=== PATIENT | female | born 1965 | race Caucasian/White ===

== ENCOUNTER 2018-10-08 14:31 | Outpatient (CLI) | payer MEDICAID | END 2018-10-08 14:32 | disposition home or self-care (01) | LOC: C.MAMMO 14:32 ==

== ENCOUNTER 2018-11-26 06:39 | Day surgery (SDC) | payer MEDICAID ==
[2018-11-26 07:15] VITALS: BMI 26.1
[2018-11-26 10:16] VITALS: TEMP 97.6
[2018-11-26 10:40] VITALS: RESP 18
[2018-11-26 11:07] VITALS: BP 119/78; PULSE 62; O2SAT 98
== END 2018-11-26 11:04 | disposition home or self-care (01) ==
LOC: C.ENDO 06:39
PROVIDERS: ATTEND Internal Medicine Gastroenterology
DX: K62.1 Rectal polyp (principal); K64.8 Other hemorrhoids

== ENCOUNTER 2019-01-10 12:59 | Observation (INO) | payer MEDICAID ==
[2019-01-10 12:59] VITALS: BMI 26.1
[2019-01-10] MEDS ORDERED: Sodium Chloride 0.9% 1,000 ML IV STA (13:32)
[2019-01-10] MEDS ORDERED: Sodium Chloride 0.9% 1,000 ML ONE (13:46)
[2019-01-10 13:53] LABS: BASO # 0.1 K/uL (0.0-0.2); BASO % 0.9 % (0.0-2.0); EOS # 0.1 K/uL (0.0-0.7); EOS % 1.2 % (0.0-4.0); HEMOGLOBIN 13.2 g/dL (11.0-16.0); LYMPH # 2.5 K/uL (1.0-4.3); LYMPH % 28.3 % (20.0-40.0); MEAN CORPUSCULAR HEMOGLOBIN 28.2 pg (27.0-31.0); MEAN CORPUSCULAR HGB CONC 34.5 g/dL (33.0-37.0); MEAN PLATELET VOLUME 8.4 fL (7.2-11.7); MONO # 0.5 K/uL (0.0-0.8); MONO % 5.4 % (0.0-10.0); NEUT # 5.7 K/uL (1.8-7.0); NEUT % 64.2 % (50.0-75.0); NRBC % 0.1 % (0.0-2.0); RBC 4.69 Mil/uL (3.80-5.20); RED CELL DISTRIBUTION WIDTH 13.3 % (11.5-14.5); WHITE BLOOD COUNT 8.9 K/uL (4.8-10.8)
[2019-01-10 13:55] LABS: MEAN CELL VOLUME 81.8 fL (81.0-99.0)
--- NOTE | 2019-01-10 13:56 | C.PDOC ---
History Of Present Illness 53 year old female with PMHx of HTN on Metropolol and Amlodipine presents to the ED complaining dizziness, nausea, and weakness for one day. Reports 6-7 episodes of vomiting yesterday, but none today. Also reports 2 episodes of diarrhea, headache, and loss of appetite. Patient states her blood pressure was high yesterday. Notes she was feeling fine 2 days prior. Denies any new medications, abdominal pain, chest pain, shortness of breath, or any other symptoms. Time Seen by Provider: 01/10/19 13:13 Chief Complaint (Nursing): Dizziness/Lightheaded History Per: Patient History/Exam Limitations: no limitations Onset/Duration Of Symptoms: Days (1) Current Symptoms Are (Timing): Still Present Past Medical History Reviewed: Historical Data, Nursing Documentation, Vital Signs Vital Signs: Last Vital Signs Temp 98.8 F 01/10/19 13:07 Pulse 64 01/10/19 13:07 Resp 17 01/10/19 13:07 BP 154/91 H 01/10/19 13:07 Pulse Ox 97 01/10/19 13:07 Primary Care Provider: Clinic,Med Surg - Medical History PMH: Asthma, Gastritis, Gall Bladder Disease (gallstones), HIV, HTN, Peripheral Edema Denies: Chronic Kidney Disease Surgical History: Cholecystectomy, Endoscopy - [facility] Procedures EXCISION OF LEFT OVARY, OPEN APPROACH (12/28/15) Family History: States: No Known Family Hx - Social History Hx Alcohol Use: No Hx Substance Use: No - Immunization History Hx Tetanus Toxoid Vaccination: Yes Hx Influenza Vaccination: No Hx Pneumococcal Vaccination: No Review Of Systems Except As Marked, All Systems Reviewed And Found Negative. Constitutional: Positive for: Other (loss of appetite ). Negative for: Fever, Chills Gastrointestinal: Positive for: Nausea, Vomiting, Diarrhea. Negative for: Abdominal Pain Genitourinary: Negative for: Dysuria, Hematuria Neurological: Positive for: Dizziness Physical Exam - Physical Exam Appears: Non-toxic, No Acute Distress Skin: Warm, Dry, No Rash Head: Normacephalic Eye(s): bilateral: PERRL, EOMI, Other ( no nystagmus) Oral Mucosa: Moist Neck: Supple Chest: Symmetrical, No Tenderness Cardiovascular: Rhythm Regular, No Murmur Respiratory: Normal Breath Sounds, No Rales, No Rhonchi, No Wheezing, Other (good air movement, CTA B/L ) Gastrointestinal/Abdominal: Soft, No Tenderness Neurological/Psych: Oriented x3, Normal Speech, Normal Cranial Nerves, No Cerebellar Signs, Normal Motor, Normal Sensation Gait: Steady ED Course And Treatment - Laboratory Results Result Diagrams: 01/10/19 13:44 01/10/19 13:44 ECG: Interpreted By Me, Viewed By Me ECG Rhythm: Sinus Bradycardia Interpretation Of ECG: No ST elevations, Left axis deviation, LVH Rate From EC O2 Sat by Pulse Oximetry: 97 (RA) Pulse Ox Interpretation: Normal - Other Rad CXR X-Ray: Viewed By Me, Read By Radiologist Interpretation: Accession No. : [id number]. Patient Name / ID : ESTEBAN GARCIA / [id number]. Exam Date : 01/10/2019 13:38:45 ( Approved ). Study Comment : Sex / Age : F / [id number]. Creator : Amparo Galloway MD. Dictator : Amparo Galloway MD. Creosoting Engineer : Needle Grinder : Amparo Galloway MD. Approver2 : Report Date : 01/10/2019 15:11:36. My Comment : . HISTORY: dizzy. COMPARISON: None available. TECHNIQUE: Chest, one view. FINDINGS: Examination limited by habitus and hypoinflation. LUNGS: No focal consolidation. Please note that chest x-ray has limited sensitivity for the detection of pulmonary masses. PLEURA: No significant pleural effusion identified. No definite pneumothorax . CARDIOVASCULAR: The cardiomediastinal silhouette appears within normal limits of size. Faint atherosclerotic calcifications present. OSSEOUS STRUCTURES: No acute osseous abnormality identified. VISUALIZED UPPER ABDOMEN: Mild elevation of the right hemidiaphragm. OTHER FINDINGS: None. IMPRESSION: No acute findings. Medical Decision Making Medical Decision Making: Plan - EKG - CXR - Zofran 4mg IVP - IV fluids - UA - Bloodwork 1520 - On reassessment, patient reports she feels like the room is spinning when she gets up. Discussed bloodwork results with pt. Waiting for urine results. Pt will be given Antivert. 170 - On reevaluation, patient is still complaining of nausea and dizziness. CT head will be ordered. 1824 - Patient reports little improvement. Still complains of nausea and dizziness. States she feels like she wants to vomit. 183 - Spoke with Dr. Stefan Fritz, will accept patient to his service. Disposition Counseled Patient/Family Regarding: Studies Performed, Diagnosis - Disposition Disposition: HOSPITALIZED Disposition Time: 18:38 Condition: GOOD - Clinical Impression Clinical Impression: Dizziness, Vomiting - Scribe Statement The provider has reviewed the documentation as recorded by the Scribghislaine Martin All medical record entries made by the Romie were at my direction and pe rsonally dictated by me. I have reviewed the chart and agree that the record accurately reflects my personal performance of the history, physical exam, medical decision making, and the department course for this patient. I have also personally directed, reviewed, and agree with the discharge instructions and disposition.
[2019-01-10 14:06] LABS: ALBUMIN 4.4 g/dL (3.5-5.0); ALT/SGPT 23 U/L (9-52); AST/SGOT 33 U/L (14-36); BLOOD UREA NITROGEN 10 mg/dL (7-17); CALCIUM 9.6 mg/dl (8.6-10.4); GFR NON-AFRICAN AMERICAN > 60; LIPASE 42 U/L (23-300)
[2019-01-10 14:51] LABS: SQUAMOUS EPITHIAL 1 /hpf (0-5); URINE BILIRUBIN NEGATIVE (NEGATIVE); URINE BLOOD 2+ (NEGATIVE); URINE CLARITY Clear (Clear); URINE COLOR Yellow (YELLOW); URINE GLUCOSE (UA) NORMAL (Normal); URINE LEUKOCYTE ESTERASE NEG Leu/uL (Negative); URINE PROTEIN NEGATIVE (NEGATIVE); URINE UROBILINOGEN NORMAL mg/dL (0.2-1.0)
--- NOTE | 2019-01-10 15:15 | RAD ---
HISTORY: dizzy COMPARISON: None available. TECHNIQUE: Chest, one view. FINDINGS: Examination limited by habitus and hypoinflation. LUNGS: No focal consolidation. Please note that chest x-ray has limited sensitivity for the detection of pulmonary masses. PLEURA: No significant pleural effusion identified. No definite pneumothorax . CARDIOVASCULAR: The cardiomediastinal silhouette appears within normal limits of size. Faint atherosclerotic calcifications present. OSSEOUS STRUCTURES: No acute osseous abnormality identified. VISUALIZED UPPER ABDOMEN: Mild elevation of the right hemidiaphragm OTHER FINDINGS: None. IMPRESSION: No acute findings.
[2019-01-10] MEDS ORDERED: Sodium Chloride 0.9% 1,000 ML IV ONE (17:04)
[2019-01-10] MEDS: Sodium Chloride 0.9% 1,000 ML IV SCH (22:11)
--- NOTE | 2019-01-10 23:23 | CP.PCM.HP ---
Past Patient History - Past Medical History & Family History Past Medical History?: Yes - Past Social History Smoking Status: Never Smoked - CARDIAC Hx Hypertension: Yes Hx Peripheral Edema: Yes - PULMONARY Hx Asthma: Yes - NEUROLOGICAL Hx Neurological Disorder: Yes (peripheral neuropathy) - HEENT Hx HEENT Problems: No - RENAL Hx Chronic Kidney Disease: No - ENDOCRINE/METABOLIC Hx Endocrine Disorders: No - HEMATOLOGICAL/ONCOLOGICAL Hx Human Immunodeficiency Virus (HIV): Yes - INTEGUMENTARY Hx Dermatological Problems: No - MUSCULOSKELETAL/RHEUMATOLOGICAL Hx Musculoskeletal Disorders: Yes Hx Falls: No Hx Osteoarthritis: Yes Other/Comment: bilat carpal tunnel - GASTROINTESTINAL Hx Gall Bladder Disease: Yes (gallstones) Hx Gastritis: Yes - GENITOURINARY/GYNECOLOGICAL Hx Genitourinary Disorders: Yes (pelvic pain cysts) - PSYCHIATRIC Hx Substance Use: No - SURGICAL HISTORY Hx Cholecystectomy: Yes - ANESTHESIA Hx Anesthesia: Yes Hx Anesthesia Reactions: Yes (nausea vomitting difficult to arouse) Hx Malignant Hyperthermia: No Meds Allergies/Adverse Reactions: Allergies Allergy/AdvReac Type Severity Reaction Status Date / Time No Known Allergies Allergy Verified 01/10/19 13:11 Physical Exam - Constitutional Appears: Well - Head Exam Head Exam: ATRAUMATIC, NORMAL INSPECTION, NORMOCEPHALIC - Eye Exam Eye Exam: EOMI, Normal appearance, PERRL Pupil Exam: NORMAL ACCOMODATION, PERRL - ENT Exam ENT Exam: Mucous Membranes Moist, Normal Exam - Neck Exam Neck exam: Positive for: Normal Inspection - Respiratory Exam Respiratory Exam: Decreased Breath Sounds - Cardiovascular Exam Cardiovascular Exam: REGULAR RHYTHM, +S1, +S2 - GI/Abdominal Exam GI & Abdominal Exam: Diminished Bowel Sounds, Soft - Rectal Exam Rectal Exam: Deferred - Neurological Exam Neurological exam: Oriented x3 Results - Vital Signs Recent Vital Signs: Last Vital Signs Temp 98.0 F 01/10/19 19:37 Pulse 60 01/10/19 19:37 Resp 20 01/10/19 19:37 BP 148/80 01/10/19 19:37 Pulse Ox 96 01/10/19 19:37 - Labs Result Diagrams: 01/10/19 13:44 01/10/19 13:44 Labs: Laboratory Results - last 24 hr 01/10/19 01/10/19 01/10/19 13:06 13:44 13:44 WBC 8.9 RBC 4.69 Hgb 13.2 Hct 38.3 MCV 81.8 D MCH 28.2 MCHC 34.5 RDW 13.3 Plt Count 361 MPV 8.4 Neut % (Auto) 64.2 Lymph % (Auto) 28.3 [place] % (Auto) 5.4 Eos % (Auto) 1.2 Baso % (Auto) 0.9 Neut # (Auto) 5.7 Lymph # (Auto) 2.5 [place] # (Auto) 0.5 Eos # (Auto) 0.1 Baso # (Auto) 0.1 Sodium 140 Potassium 3.4 L Chloride 102 Carbon Dioxide 27 Anion Gap 15 BUN 10 Creatinine 0.7 Est GFR ( Amer) > 60 Est GFR (Non-Af Amer) > 60 POC Glucose (mg/dL) 107 Random Glucose 110 H Calcium 9.6 Total Bilirubin 1.2 AST 33 ALT 23 Alkaline Phosphatase 125 Troponin I Total Protein 8.7 H Albumin 4.4 Globulin 4.3 H Albumin/Globulin Ratio 1.0 Lipase 42 Urine Color Urine Clarity Urine pH Ur Specific [place] Urine Protein Urine Glucose (UA) Urine Ketones Urine Blood Urine Nitrate Urine Bilirubin Urine Urobilinogen Ur Leukocyte Esterase Urine WBC (Auto) Urine RBC (Auto) Ur Squamous Epith Cells 01/10/19 01/10/19 14:00 14:47 WBC RBC Hgb Hct MCV MCH MCHC RDW Plt Count MPV Neut % (Auto) Lymph % (Auto) [place] % (Auto) Eos % (Auto) Baso % (Auto) Neut # (Auto) Lymph # (Auto) [place] # (Auto) Eos # (Auto) Baso # (Auto) Sodium Potassium Chloride Carbon Dioxide Anion Gap BUN Creatinine Est GFR ( Amer) Est GFR (Non-Af Amer) POC Glucose (mg/dL) Random Glucose Calcium Total Bilirubin AST ALT Alkaline Phosphatase Troponin I < 0.0120 Total Protein Albumin Globulin Albumin/Globulin Ratio Lipase Urine Color Yellow Urine Clarity Clear Urine pH 7.0 Ur Specific [place] 1.008 Urine Protein Negative Urine Glucose (UA) Normal Urine Ketones Negative Urine Blood 2+ H Urine Nitrate Negative Urine Bilirubin Negative Urine Urobilinogen Normal Ur Leukocyte Esterase Neg Urine WBC (Auto) < 1 Urine RBC (Auto) 1 Ur Squamous Epith Cells 1
[2019-01-11] MEDS ORDERED: Potassium Chloride 20 mEq ER Tab PO ONE (00:57)
--- NOTE | 2019-01-11 09:57 | CT ---
Date of service: 01/10/2019 PROCEDURE: CT HEAD WITHOUT CONTRAST. HISTORY: dizziness COMPARISON: None available. TECHNIQUE: Axial computed tomography images were obtained through the head/brain without intravenous contrast. Radiation dose: Total exam DLP = 1028.77 mGy-cm. This CT exam was performed using one or more of the following dose reduction techniques: Automated exposure control, adjustment of the mA and/or kV according to patient size, and/or use of iterative reconstruction technique. FINDINGS: HEMORRHAGE: No intracranial hemorrhage. BRAIN: No mass effect or edema. Scattered periventricular and subcortical white matter hypodensities, which are nonspecific, but often seen with chronic microvascular ischemic disease. Please note that MRI with diffusion imaging is more sensitive in the detection of acute ischemic event. VENTRICLES: No hydrocephalus. CALVARIUM: Unremarkable. PARANASAL SINUSES: Unremarkable as visualized. No significant inflammatory changes. MASTOID AIR CELLS: Unremarkable as visualized. No inflammatory changes. OTHER FINDINGS: None. IMPRESSION: No acute intracranial pathology identified. Nonspecific white matter changes present. Preliminary impression was provided by [employer].
[2019-01-11] MEDS ORDERED: Pantoprazole 40 mg EC Tab PO SCH (10:00)
[2019-01-11] MEDS ORDERED: Emtricitabine/rilpivirine/tenofovir 1 TAB PO SCH (10:00)
--- NOTE | 2019-01-11 10:04 | CP.PCM.CON ---
History of Present Illness - History of Present Illness History of Present Illness: This is a 53 year old woman with nausea and vomiting. Patient saw Dr. Plascencia recently for a positive fecal occult blood test. [facility] copy 11/26/2018 showed internal hemorrhoids and a 6 mm adenoma in the rectum; the polyp was removed. She also had EGD 10 or 11 years ago which showed only gastritis. Patient was in her usual state of health until Saturday, when she noted sudden onset of dizziness, the sense that her surroundings were spinning, nausea and vomiting. She vomited up to seven times, and had diarrhea twice. she had a mi ld headache. She denies having ringing in the ears, loss of appetite, loss of weight, heartburn, difficulty swallowing, abdominla pain, constipation, and rectal bleeding. Review of Systems - Review of Systems All systems: reviewed and no additional remarkable complaints except - Constitutional Constitutional: Headache. absent: Anorexia, Chills, Fever, Weight Loss - EENT Ears: Dizziness. absent: Tinnitus - Gastrointestinal Gastrointestinal: Diarrhea, Nausea, Vomiting. absent: Abdominal Pain, Constipation, Dysphagia, Heartburn, Hematochezia - Genitourinary Genitourinary: absent: Dysuria, Hematuria - Neurological Neurological: Dizziness, Headaches, Vertigo Past Patient History - Past Medical History & Family History Past Medical History?: Yes - Past Social History Smoking Status: Never Smoked - CARDIAC Hx Hypertension: Yes Hx Peripheral Edema: Yes - PULMONARY Hx Asthma: Yes - NEUROLOGICAL Hx Neurological Disorder: Yes (peripheral neuropathy) - HEENT Hx HEENT Problems: No - RENAL Hx Chronic Kidney Disease: No - ENDOCRINE/METABOLIC Hx Endocrine Disorders: No - HEMATOLOGICAL/ONCOLOGICAL Hx Human Immunodeficiency Virus (HIV): Yes - INTEGUMENTARY Hx Dermatological Problems: No - MUSCULOSKELETAL/RHEUMATOLOGICAL Hx Musculoskeletal Disorders: Yes Hx Falls: No Hx Osteoarthritis: Yes Other/Comment: bilat carpal tunnel - GASTROINTESTINAL Hx Gall Bladder Disease: Yes (gallstones) Hx Gastritis: Yes - GENITOURINARY/GYNECOLOGICAL Hx Genitourinary Disorders: Yes (pelvic pain cysts) - PSYCHIATRIC Hx Substance Use: No - SURGICAL HISTORY Hx Cholecystectomy: Yes - ANESTHESIA Hx Anesthesia: Yes Hx Anesthesia Reactions: Yes (nausea vomitting difficult to arouse) Hx Malignant Hyperthermia: No Meds Allergies/Adverse Reactions: Allergies Allergy/AdvReac Type Severity Reaction Status Date / Time No Known Allergies Allergy Verified 01/10/19 13:11 - Medications Medications: Current Medications Amlodipine Besylate (Norvasc) 10 mg PO DAILY [facility] Enoxaparin Sodium (Lovenox) 40 mg SC DAILY [facility] Sodium Chloride (Sodium Chloride 0.9%) 1,000 mls @ 75 mls/hr IV .[id number] [facility] Last Admin: 01/10/19 22:11 Dose: 75 mls/hr Loratadine (Claritin) 10 mg PO DAILY [facility] Meclizine HCl (Antivert) 25 mg PO TID [facility] Metoprolol Tartrate (Lopressor) 25 mg PO DAILY [facility] Pantoprazole Sodium (Protonix Ec Tab) 40 mg PO DAILY [facility] Physical Exam - Constitutional Appears: No Acute Distress - Head Exam Head Exam: ATRAUMATIC, NORMOCEPHALIC - Eye Exam Eye Exam: EOMI - Neck Exam Neck exam: Negative for: Lymphadenopathy, Thyromegaly - Respiratory Exam Respiratory Exam: NORMAL BREATHING PATTERN. absent: Decreased Breath Sounds, Rhonchi, Wheezes - Cardiovascular Exam Cardiovascular Exam: REGULAR RHYTHM, +S1, +S2. absent: Gallop, Rubs, Systolic Murmur - GI/Abdominal Exam GI & Abdominal Exam: Normal Bowel Sounds, Soft. absent: Mass, Organomegaly, Tenderness - Rectal Exam Rectal Exam: Deferred - Extremities Exam Extremities exam: Negative for: calf tenderness, pedal edema Results - Vital Signs Recent Vital Signs: Last Vital Signs Temp 97.6 F 01/11/19 08:38 Pulse 61 01/11/19 08:38 Resp 20 01/11/19 08:38 BP 135/81 01/11/19 08:38 Pulse Ox 96 01/11/19 08:38 - Labs Result Diagrams: 01/10/19 13:44 01/10/19 13:44 Labs: Laboratory Results - last 24 hr 01/10/19 01/10/19 01/10/19 13:06 13:44 13:44 WBC 8.9 RBC 4.69 Hgb 13.2 Hct 38.3 MCV 81.8 D MCH 28.2 MCHC 34.5 RDW 13.3 Plt Count 361 MPV 8.4 Neut % (Auto) 64.2 Lymph % (Auto) 28.3 [place] % (Auto) 5.4 Eos % (Auto) 1.2 Baso % (Auto) 0.9 Neut # (Auto) 5.7 Lymph # (Auto) 2.5 [place] # (Auto) 0.5 Eos # (Auto) 0.1 Baso # (Auto) 0.1 Sodium 140 Potassium 3.4 L Chloride 102 Carbon Dioxide 27 Anion Gap 15 BUN 10 Creatinine 0.7 Est GFR ( Amer) > 60 Est GFR (Non-Af Amer) > 60 POC Glucose (mg/dL) 107 Random Glucose 110 H Calcium 9.6 Total Bilirubin 1.2 AST 33 ALT 23 Alkaline Phosphatase 125 Troponin I Total Protein 8.7 H Albumin 4.4 Globulin 4.3 H Albumin/Globulin Ratio 1.0 Lipase 42 Urine Color Urine Clarity Urine pH Ur Specific [place] Urine Protein Urine Glucose (UA) Urine Ketones Urine Blood Urine Nitrate Urine Bilirubin Urine Urobilinogen Ur Leukocyte Esterase Urine WBC (Auto) Urine RBC (Auto) Ur Squamous Epith Cells 01/10/19 01/10/19 14:00 14:47 WBC RBC Hgb Hct MCV MCH MCHC RDW Plt Count MPV Neut % (Auto) Lymph % (Auto) [place] % (Auto) Eos % (Auto) Baso % (Auto) Neut # (Auto) Lymph # (Auto) [place] # (Auto) Eos # (Auto) Baso # (Auto) Sodium Potassium Chloride Carbon Dioxide Anion Gap BUN Creatinine Est GFR ( Amer) Est GFR (Non-Af Amer) POC Glucose (mg/dL) Random Glucose Calcium Total Bilirubin AST ALT Alkaline Phosphatase Troponin I < 0.0120 Total Protein Albumin Globulin Albumin/Globulin Ratio Lipase Urine Color Yellow Urine Clarity Clear Urine pH 7.0 Ur Specific [place] 1.008 Urine Protein Negative Urine Glucose (UA) Normal Urine Ketones Negative Urine Blood 2+ H Urine Nitrate Negative Urine Bilirubin Negative Urine Urobilinogen Normal Ur Leukocyte Esterase Neg Urine WBC (Auto) < 1 Urine RBC (Auto) 1 Ur Squamous Epith Cells 1 Assessment & Plan (1) Nausea & vomiting Assessment and Plan: Patient had an episode of nausea and vomiting with headache and vertigo. At present, patient feels better. This is most likely neurogenic in etiology. Agree with neurology consultation. EGD should be performed; this may be ar ranged as an outpatient. Status: Acute
[2019-01-11] MEDS: Enoxaparin 40 mg Syringe SC SCH (11:07)
[2019-01-11] MEDS: Sodium Chloride 0.9% 1,000 ML IV SCH (11:08)
--- NOTE | 2019-01-11 11:11 | CP.PCM.PN ---
Subjective - Date & Time of Evaluation Date of Evaluation: 01/11/19 - Subjective Subjective: no c/o vomiting, no diarrhea, no fever Objective - Vital Signs/Intake and Output Vital Signs (last 24 hours): Temp Pulse Resp BP Pulse Ox 97.6 F 61 20 125/75 96 01/11/19 08:38 01/11/19 08:38 01/11/19 08:38 01/11/19 11:07 01/11/19 08:38 Intake and Output: 01/11/19 01/11/19 06:59 18:59 Intake Total 685 Balance 685 - Medications Medications: Current Medications Amlodipine Besylate (Norvasc) 10 mg PO DAILY [facility] Last Admin: 01/11/19 11:06 Dose: 10 mg Enoxaparin Sodium (Lovenox) 40 mg SC DAILY [facility] Last Admin: 01/11/19 11:07 Dose: 40 mg Sodium Chloride (Sodium Chloride 0.9%) 1,000 mls @ 75 mls/hr IV .[id number] [facility] Last Admin: 01/11/19 11:08 Dose: Not Given Loratadine (Claritin) 10 mg PO DAILY [facility] Last Admin: 01/11/19 11:06 Dose: 10 mg Meclizine HCl (Antivert) 25 mg PO TID [facility] Last Admin: 01/11/19 11:06 Dose: 25 mg Metoprolol Tartrate (Lopressor) 25 mg PO DAILY [facility] Last Admin: 01/11/19 11:07 Dose: 25 mg Pantoprazole Sodium (Protonix Ec Tab) 40 mg PO DAILY [facility] - Labs Labs: 01/10/19 13:44 01/10/19 13:44 Assessment and Plan (1) Dizziness Status: Acute (2) Nausea & vomiting Status: Acute (3) Vomiting Status: Acute (4) Ovarian cyst Status: Acute (5) Post-op pain Status: Acute (6) GERD (gastroesophageal reflux disease) Status: Chronic (7) HTN (hypertension) Status: Chronic (8) Anemia Status: Suspected - Assessment and Plan (Free Text) Plan: Potassium 3.4 Glucose 110 Norvasc Lovenox Claritin Antivert Lopressor Protonix Moderate to high complexity of care. Plan of care discussed with patient &/or family & staff. Medications reviewed and reconciled. Labs reviewed. Vitals reviewed.
[2019-01-11] MEDS: COMPLERA PO SCH (12:40)
[2019-01-12] MEDS: Sodium Chloride 0.9% 1,000 ML IV SCH ×2 (00:36→13:42)
[2019-01-12 07:50] VITALS: TEMP 97.3
[2019-01-12] MEDS: COMPLERA PO SCH (11:19)
[2019-01-12] MEDS: Enoxaparin 40 mg Syringe SC SCH (11:19)
[2019-01-12 11:22] VITALS: BP 127/79
--- NOTE | 2019-01-12 13:30 | CP.PCM.PN ---
Subjective - Date & Time of Evaluation Date of Evaluation: 01/12/19 Time of Evaluation: 13:27 - Subjective Subjective: Vertigo and nausea resolved eating lunch and feels well Denies abdominal pain Objective - Vital Signs/Intake and Output Vital Signs (last 24 hours): Temp Pulse Resp BP Pulse Ox 97.3 F L 55 L 20 127/79 96 01/12/19 07:49 01/12/19 07:49 01/12/19 07:49 01/12/19 11:22 01/12/19 07:49 - Medications Medications: Current Medications Amlodipine Besylate (Norvasc) 10 mg PO DAILY [facility] Last Admin: 01/12/19 11:21 Dose: 10 mg Enoxaparin Sodium (Lovenox) 40 mg SC DAILY [facility] Last Admin: 01/12/19 11:19 Dose: Not Given Famotidine (Pepcid) 40 mg PO DAILY [facility] Last Admin: 01/12/19 11:19 Dose: 40 mg Home Med (Patient's Own Medication) 1 tab PO DAILY [facility] Last Admin: 01/12/19 11:19 Dose: 1 tab Sodium Chloride (Sodium Chloride 0.9%) 1,000 mls @ 75 mls/hr IV .[id number] [facility] Last Admin: 01/12/19 00:36 Dose: 75 mls/hr Loratadine (Claritin) 10 mg PO DAILY [facility] Last Admin: 01/12/19 11:19 Dose: 10 mg Meclizine HCl (Antivert) 25 mg PO TID [facility] Last Admin: 01/12/19 11:19 Dose: 25 mg Metoprolol Tartrate (Lopressor) 25 mg PO DAILY [facility] Last Admin: 01/12/19 11:22 Dose: 25 mg - Labs Labs: 01/10/19 13:44 - Constitutional Appears: Well, No Acute Distress - Head Exam Head Exam: NORMOCEPHALIC - Neck Exam Neck Exam: Normal Inspection - Respiratory Exam Respiratory Exam: NORMAL BREATHING PATTERN - Cardiovascular Exam Cardiovascular Exam: REGULAR RHYTHM - GI/Abdominal Exam GI & Abdominal Exam: Soft. absent: Tenderness Assessment and Plan (1) Nausea & vomiting Assessment & Plan: due to neurologic causes, not GI rel;ated. Resolved Await Neuro eval No GI workup planned Status: Acute (2) GERD (gastroesophageal reflux disease) Assessment & Plan: Stable Does not require EGD at this time Status: Chronic (3) H/O adenomatous polyp of colon Assessment & Plan: Recent Colonoscopy- 1 month ago Discussed with patient- recommended surveillance colonoscopy in 5 years Status: Acute
[2019-01-12 16:42] VITALS: PULSE 62; RESP 18
--- NOTE | 2019-01-12 16:48 | CP.PCM.PN ---
Subjective - Date & Time of Evaluation Date of Evaluation: 01/12/19 Time of Evaluation: 14:00 - Subjective Subjective: patient seen today, states feels better, denies any dizziness, sob, chest pain, abdominal pain, tolerating diet vss- and labs reviewed- stable Objective - Vital Signs/Intake and Output Vital Signs (last 24 hours): Temp Pulse Resp BP Pulse Ox 97.3 F L 62 18 127/79 98 01/12/19 07:49 01/12/19 11:21 01/12/19 11:21 01/12/19 11:22 01/12/19 11:21 Intake and Output: 01/12/19 01/12/19 06:59 18:59 Intake Total 450 Balance 450 - Labs Labs: 01/10/19 13:44 01/10/19 13:44 Assessment and Plan - Assessment and Plan (Free Text) Assessment: A/P 53 year old female with PMHx of HTN presents to the ED complaining dizziness, nausea, and weakness for one day. Reports 6-7 episodes of vomiting yesterday, and 2 episodes of diarrhea, headache, and loss of appetite. D/V AND DIZZINESS RESOLVED patient tolerating diet seen by GI , no gi work up D/W cleared fro discharge home today and continue zofran and mecline and resume all home medications Discharge plan discussed with patient who understands and agree with plan RX given upon discharge
[2019-01-12 17:33] VITALS: O2SAT 97
--- NOTE | 2019-01-12 20:26 | CON ---
DATE: 01/12/2019 HISTORY OF PRESENT ILLNESS: This is a 53-year-old female with past medical history of high blood pressure, diabetes and came to the hospital with the complaint of dizziness, nausea, vomiting, with spinning sensation of the rooms and herself, and also complained of diarrhea, headache and loss of appetite. is at bedside. I was called to evaluate for the dizziness. PAST MEDICAL HISTORY: As above, asthma, gastritis, HIV, hypertension, peripheral edema, and chronic kidney disease. ALLERGIES: NO KNOWN DRUG ALLERGIES. PHYSICAL EXAMINATION: VITAL SIGNS: Blood pressure 154/91. HEENT: Normocephalic, atraumatic. NECK: Supple. NEUROLOGIC: Alert, awake, oriented x3. No aphasia. Cranial nerves II through XII are tested. Pupils reactive. EOM intact. Visual cardenas are full. No facial asymmetry. Tongue is midline. Motor examination: Moves all the extremities equally. Tone normal. Deep tendon reflexes 1+. Both plantars are downgoing. Sensory appears intact. Cerebellar, gait normal. IMPRESSION AND PLAN: Vertigo and rule out vertebrobasilar ischemia and CAT scan of the head was done which was reported negative and the patient is feeling better. Blood pressure is controlled and getting antibiotics and continue pleasant management. We will follow up. Shawn Perez MD
--- NOTE | 2019-01-12 22:51 | CP.PCM.DIS ---
Provider - Provider Date of Admission: 01/10/19 18:39 Attending physician: Yudy Fritz MD Consults: 01/10/19 21:23 Neurology Consult Routine Comment: Consulting Provider: Shawn Perez Consulting Physician: Shawn Perez Reason for Consult: dizziness 01/11/19 08:16 Physician Consult Routine Comment: Consulting Provider: Jatin Plascencia Consulting Physician: Jatin Plascencia Reason for Consult: emesis and vomiting Time Spent in preparation of Discharge (in minutes): 20 Diagnosis - Discharge Diagnosis (1) Dizziness Status: Acute (2) Nausea & vomiting Status: Acute (3) Vomiting Status: Acute (4) Ovarian cyst Status: Acute (5) Post-op pain Status: Acute (6) GERD (gastroesophageal reflux disease) Status: Chronic (7) HTN (hypertension) Status: Chronic (8) Anemia Status: Suspected Hospital Course - Lab Results Lab Results: Most Recent Lab Values WBC 8.9 K/uL (4.8-10.8) 01/10/19 13:44 RBC 4.69 Mil/uL (3.80-5.20) 01/10/19 13:44 Hgb 13.2 g/dL (11.0-16.0) 01/10/19 13:44 Hct 38.3 % (34.0-47.0) 01/10/19 13:44 MCV 81.8 fL (81.0-99.0) D 01/10/19 13:44 MCH 28.2 pg (27.0-31.0) 01/10/19 13:44 MCHC 34.5 g/dL (33.0-37.0) 01/10/19 13:44 RDW 13.3 % (11.5-14.5) 01/10/19 13:44 Plt Count 361 K/uL (130-400) 01/10/19 13:44 MPV 8.4 fL (7.2-11.7) 01/10/19 13:44 Neut % (Auto) 64.2 % (50.0-75.0) 01/10/19 13:44 Lymph % (Auto) 28.3 % (20.0-40.0) 01/10/19 13:44 Williamson % (Auto) 5.4 % (0.0-10.0) 01/10/19 13:44 Eos % (Auto) 1.2 % (0.0-4.0) 01/10/19 13:44 Baso % (Auto) 0.9 % (0.0-2.0) 01/10/19 13:44 Neut # (Auto) 5.7 K/uL (1.8-7.0) 01/10/19 13:44 Lymph # (Auto) 2.5 K/uL (1.0-4.3) 01/10/19 13:44 Williamson # (Auto) 0.5 K/uL (0.0-0.8) 01/10/19 13:44 Eos # (Auto) 0.1 K/uL (0.0-0.7) 01/10/19 13:44 Baso # (Auto) 0.1 K/uL (0.0-0.2) 01/10/19 13:44 Sodium 140 mmol/L (132-148) 01/10/19 13:44 Potassium 3.4 mmol/L (3.6-5.2) L 01/10/19 13:44 Chloride 102 mmol/L (98-107) 01/10/19 13:44 Carbon Dioxide 27 mmol/L (22-30) 01/10/19 13:44 Anion Gap 15 (10-20) 01/10/19 13:44 BUN 10 mg/dL (7-17) 01/10/19 13:44 Creatinine 0.7 mg/dL (0.7-1.2) 01/10/19 13:44 Est GFR ( Amer) > 60 01/10/19 13:44 Est GFR (Non-Af Amer) > 60 01/10/19 13:44 POC Glucose (mg/dL) 107 mg/dL (65-110) 01/10/19 13:06 Random Glucose 110 mg/dL (65-105) H 01/10/19 13:44 Calcium 9.6 mg/dl (8.6-10.4) 01/10/19 13:44 Total Bilirubin 1.2 mg/dL (0.2-1.3) 01/10/19 13:44 AST 33 U/L (14-36) 01/10/19 13:44 ALT 23 U/L (9-52) 01/10/19 13:44 Alkaline Phosphatase 125 U/L (38-126) 01/10/19 13:44 Troponin I < 0.0120 ng/mL (0.00-0.120) 01/10/19 14:00 Total Protein 8.7 g/dL (6.3-8.3) H 01/10/19 13:44 Albumin 4.4 g/dL (3.5-5.0) 01/10/19 13:44 Globulin 4.3 gm/dL (2.2-3.9) H 01/10/19 13:44 Albumin/Globulin Ratio 1.0 (1.0-2.1) 01/10/19 13:44 Lipase 42 U/L (23-300) 01/10/19 13:44 Urine Color Yellow (YELLOW) 01/10/19 14:47 Urine Clarity Clear (Clear) 01/10/19 14:47 Urine pH 7.0 (5.0-8.0) 01/10/19 14:47 Ur Specific Pierre 1.008 (1.003-1.030) 01/10/19 14:47 Urine Protein Negative mg/dL (NEGATIVE) 01/10/19 14:47 Urine Glucose (UA) Normal mg/dL (Normal) 01/10/19 14:47 Urine Ketones Negative mg/dL (NEGATIVE) 01/10/19 14:47 Urine Blood 2+ (NEGATIVE) H 01/10/19 14:47 Urine Nitrate Negative (NEGATIVE) 01/10/19 14:47 Urine Bilirubin Negative (NEGATIVE) 01/10/19 14:47 Urine Urobilinogen Normal mg/dL (0.2-1.0) 01/10/19 14:47 Ur Leukocyte Esterase Neg Cornelia/uL (Negative) 01/10/19 14:47 Urine WBC (Auto) < 1 /hpf (0-5) 01/10/19 14:47 Urine RBC (Auto) 1 /hpf (0-3) 01/10/19 14:47 Ur Squamous Epith Cells 1 /hpf (0-5) 01/10/19 14:47 - Hospital Course Hospital Course: Patient with HIV came with the dizziness and vomiting secondary to gastritis patient seen by Dr. Jacob however patient's nausea resolved vertigo resolved the patient claims that she did not want some Antivert before the discharge patient hemoglobin is 13 patient's other family members at bedside agreed to be discharged patient is advised to follow-up with the PMD of my office within 48 hours patient agreed Discharge Exam - Head Exam Head Exam: NORMOCEPHALIC - Eye Exam Eye Exam: EOMI, Normal appearance, PERRL Pupil Exam: NORMAL ACCOMODATION, PERRL - ENT Exam ENT Exam: Normal Exam - Neck Exam Neck exam: Full Rom - Respiratory Exam Respiratory Exam: Decreased Breath Sounds, Rales - Cardiovascular Exam Cardiovascular Exam: REGULAR RHYTHM, +S1, +S2 - GI/Abdominal Exam GI & Abdominal Exam: Diminished Bowel Sounds, Soft - Rectal Exam Rectal Exam: Deferred - Neurological Exam Neurological exam: Oriented x3 Discharge Plan - Discharge Medications Prescriptions: Meclizine [Meclizine*] 25 mg PO TID PRN #30 tab PRN Reason: Dizziness Ondansetron [Zofran] 4 mg PO Q8H PRN #15 tab PRN Reason: Nausea/Vomiting - Follow Up Plan Condition: GOOD Disposition: HOME/ ROUTINE Instructions: High Blood Pressure (DC), Nausea and Vomiting, Adult (DC), Dizziness, Nonvertigo, (DC), Meclizine, Ondansetron Additional Instructions: Please f/u with Dr. Gutierrez(PMD) on saturday Please continue medication as per med. rec. Please black pickler medication from [facility] - e prescribed Referrals: Shawn Perez MD [Staff Provider] - Yaneli Fritz MD [Staff Provider] - Jatin Plascencia MD [Staff Provider] -
== END 2019-01-12 15:20 | disposition home or self-care (01) ==
LOC: C.ER 12:59 → C.9E 18:39 → C.5S 18:52
PROVIDERS: ADMIT Internal Medicine Nephrology; ATTEND Internal Medicine Nephrology
DX: R42 Dizziness and giddiness (principal); R11.10 Vomiting, unspecified; Z21 Asymptomatic human immunodeficiency virus [HIV] infection status; E11.22 Type 2 diabetes mellitus with diabetic chronic kidney disease; I12.9 Hypertensive chronic kidney disease with stage 1 through stage 4 chronic kidney disease, or unspecified chronic kidney disease; J45.909 Unspecified asthma, uncomplicated; D63.1 Anemia in chronic kidney disease; K21.9 Gastro-esophageal reflux disease without esophagitis; N18.9 Chronic kidney disease, unspecified; E11.42 Type 2 diabetes mellitus with diabetic polyneuropathy; Z86.010 Personal history of colon polyps
CPT/HCPCS: 70450; 71045; 80053; 81001; 82948; 83690; 84484; 85025; 96360; 96374; 99285; G0378; J1650; J2405; J7030

== ENCOUNTER 2019-01-21 09:34 | Outpatient (CLI) | payer MEDICAID | END 2019-01-21 09:35 | disposition home or self-care (01) | LOC: C.LAB 09:34 ==